=== PATIENT | female | born 1985 | race African-American/Black ===

== ENCOUNTER 2018-12-18 21:03 | Emergency (ER) | payer BC, OTHER, SELFPAY ==
[~2018-12-18] VITALS: Ht 172.7 cm; Wt 93.8 kg
[2018-12-18 21:22] VITALS: BP 121/76
== END 2018-12-19 00:41 | disposition home or self-care (01) ==
LOC: ED 23:59
DX: L03.115 Cellulitis of right lower limb (principal)
CPT/HCPCS: 36415; 80048; 82040; 85025; 99284